=== PATIENT | female | born 1995 ===

== ENCOUNTER → 2020-05-13 | Outpatient (CLI) | payer SELFPAY ==
[~2020-05-13] MED LIST: COVID-19 VACCINE (PFIZER)/PF 30 MCG/0.3 ML VIAL IM ONE; EPINEPHRINE INJ/PF 1 MG/1 ML AMPULE IM PRN
== END ==
LOC: EMPHEALTH 09:12
PROVIDERS: ATTEND Internal Medicine
DX: Z23 Encounter for immunization (principal)
CPT/HCPCS: 91300

== ENCOUNTER → 2020-06-03 | Outpatient (CLI) | payer SELFPAY ==
--- OUTSIDE RECORDS SUMMARY | 2020-06-03 14:30 | XMS REPORT ---
:1995 [facility] [address] [place] [address] Care Team Providers Name Role Phone Unavailable Unavailable Unavailable Allergies, Adverse Reactions, Alerts This patient has no known allergies or adverse reactions. Medications Ordered Filled Start Stop Current Ordering Indication Dosage Frequency Signature Comments Components Medication Medication Date Date Medication? Clinician (SIG) Name Name ISIBLOOM No [id number] TAKE 1 0.15-0.03 01-10 TABLET BY mg tablet 00:00: MOUTH ONCE 00 DAILY tretinoin 2019- No [id number] QD Apply (RETIN-A) 01-10 topically 0.025 % 00:00: 23:59 nightly cream 00 :00 clotrimazol 2019- No [id number] Q.5D Apply e-betametha 07-11 topically sone 00:00: 23:59 2 (two) (LOTRISONE) 00 :00 times 1-0.05 % daily cream tretinoin 2018- No [id number] QD Apply (RETIN-A) 07-11 topically 0.025 % 00:00: 00:00 nightly cream 00 :00 desogestrel 2019- No 1{tbl} QD Take 1 -ethinyl 07-13 tablet by estradiol 00:00: 00:00 mouth once (APRI) 00 :00 daily. NO 0.15-0.03 FURTHER mg tablet REFILLS WITHOUT AN APPOINTMEN T. methylPREDN 2017- No Follow ISolone 02-06 package (MEDROL 00:00: 00:00 directions DOSEPACK) 4 00 :00 . mg tablet escitalopra 2017- No 20mg QD Take 1 m oxalate 01-04 tablet (20 (LEXAPRO) 00:00: 00:00 mg total) 20 MG 00 :00 by mouth tablet once daily. clindamycin USE (CLEOCIN T) 12-18 DIRECTED 1 % swab 00:00: 00:00 ONCE D IN 00 :00 THE MORNING doxycycline TK 1 T PO (PERIOSTAT) 12-18 BID 1 HOUR 20 MG 00:00: 00:00 B MEAL AND tablet 00 :00 2 H PC escitalopra 20mg QD Take 1 m oxalate 10-25 tablet (20 (LEXAPRO) 00:00: 00:00 mg total) 20 MG 00 :00 by mouth tablet once daily. PATIENT NEEDS AN APPOINTMEN T escitalopra TAKE 1 m oxalate 09-23 TABLET(20 (LEXAPRO) 00:00: 00:00 MG) BY 20 MG 00 :00 MOUTH tablet EVERY DAY desogestrel 1{tbl} QD Take 1 -ethinyl 07-10 tablet by estradiol 00:00: 00:00 mouth once (APRI) 00 :00 daily. 0.15-0.03 mg tablet Problems This patient has no known problems. Procedures This patient has no known procedures. Results Test Description Test Time Test Comments Text Results Atomic Results Result Comments SARS-CoV-2 RNA Resp Ql JOSE ANTONIO+probe 2020-05-07 00:00:00 Test Item Value Reference Range Comments SARS-CoV-2 RNA Resp Ql [facility]: (test code = 51255-4) [id number] Assessments Condition Name Status Diagnosis Date Treating Clinici an control counseling Unknown Acne vulgaris Unknown Encounters Start End Encounter Admission Attending Care Care Encounter Date/Time Date/Time Type Type Clinicians Facility Department ID 2019-01-10 2019-01-10 Outpatient [facility] [id number] 00:00:00 00:00:00 2017-08-07 2017-08-07 Outpatient [facility] [id number] 00:00:00 00:00:00 2017-07-11 2017-07-11 Outpatient [facility] [id number] 00:00:00 00:00:00 2016-10-20 2016-10-20 Outpatient [facility] [id number] 00:00:00 00:00:00 Immunizations Ordered Immunization Filled Immunization Date Status Commen ts Refusal Reason Name Name Influenza, IM 2017-01-26 Completed unspecified 00:00:00 Influenza, IM 2016-01-27 Completed unspecified 00:00:00 Tdap 2015-05-14 Completed 00:00:00 Plan of Treatment Planned Activity Planned Date Details Comments Future Scheduled Test [code = ] Future Scheduled Test [code = ] Future Scheduled Test [code = ] Future Scheduled Test [code = ] Future Scheduled Test [code = ] Social History Social Habit Start Date Stop Date Comments Alcohol intake 2016-07-10 00:00:00 2016-07-10 00:00:00 Alcohol Comment 2016-01-28 00:00:00 2016-01-28 00:00:00 Smoking Status Start Date Stop Date Never smoker 2016-07-10 00:00:00 Vital Signs This patient has no known vital signs.
== END ==
LOC: EMPHEALTH 09:14
PROVIDERS: ATTEND Internal Medicine
DX: Z23 Encounter for immunization (principal)
CPT/HCPCS: 91300